=== PATIENT | female | born 1990 | race Caucasian/White ===

== ENCOUNTER 2016-05-10 16:16 | Emergency (ER) | payer BC ==
[2016-05-10 16:42] VITALS: BP 117/71
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
== END 2016-05-10 18:12 | disposition home or self-care (01) ==
LOC: UCEAST 16:16
DX: S06.0X9A Concussion with loss of consciousness of unspecified duration, initial encounter (principal); Y04.2XXA Assault by strike against or bumped into by another person, initial encounter; Y93.9 Activity, unspecified; Y92.9 Unspecified place or not applicable; Y07.11 Biological father, perpetrator of maltreatment and neglect; R51 Headache; R42 Dizziness and giddiness; H53.9 Unspecified visual disturbance
CPT/HCPCS: 99211; G0463

== ENCOUNTER 2016-05-11 16:14 | Emergency (ER) | payer BC ==
[2016-05-11 16:26] VITALS: BP 101/61
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
--- NOTE | 2016-05-11 17:05 | RAD ---
INDICATION: Intracranial injury. COMPARISON: CT brain January 06, 2016 TECHNIQUE: Noncontrast axial source images were acquired from the skull base to the vertex. FINDINGS: Ventricles/sulci: The ventricles and cisterns are normal in size and configuration for age. Brain parenchyma: There is no focal parenchymal finding, evidence of intracranial mass, or intracranial mass effect. Intracranial hemorrhage:None. Extra-axial spaces: There are no abnormal extra axial fluid collections or evidence of extra-axial mass. Calvarium: There is no calvarial fracture or other calvarial abnormality. Scalp: There is no evidence of scalp or extracalvarial soft tissue abnormality. Paranasal sinuses/mastoid: The paranasal sinuses and mastoid air cells are clear. Other: None. IMPRESSION: NEGATIVE EXAMINATION, UNCHANGED.
== END 2016-05-11 17:35 | disposition home or self-care (01) ==
LOC: UCEAST 16:14
DX: S06.0X9S Concussion with loss of consciousness of unspecified duration, sequela (principal); V80.010S Animal-rider injured by fall from or being thrown from horse in noncollision accident, sequela; H53.9 Unspecified visual disturbance
CPT/HCPCS: 70450; 99212; G0463